=== PATIENT | female | born 1985 | race Two or more races ===

== ENCOUNTER → 2018-01-24 | Outpatient (CLI) | payer OTHER | LOC: FIMAGING 12:10 | PROVIDERS: ATTEND Advanced Practice Midwife | DX: Z34.92 Encounter for supervision of normal pregnancy, unspecified, second trimester (principal); Z3A.20 20 weeks gestation of pregnancy; Z98.891 History of uterine scar from previous surgery ==

== ENCOUNTER → 2018-06-20 | Outpatient (CLI) | payer OTHER | LOC: FIMAGING 14:21 | PROVIDERS: ATTEND Advanced Practice Midwife | DX: O91.23 Nonpurulent mastitis associated with lactation (principal) ==